=== PATIENT | male | born 1950 | race Caucasian/White ===

== ENCOUNTER 2018-06-10 13:27 | Outpatient (CLI) | payer OTHER, MEDICARE ==
[~2018-06-10] VITALS: Ht 180.3 cm; Wt 93.4 kg
[~2018-06-10 13:27] MED LIST: ATI1T PO; COL100C PO; KEP500T PO; LEVE750T6 PO; LEVO50TA67 PO; LORA1TAB PO; NORCO10T PO; RANI-327 PO; SIMV80TA2 PO; TEMA30CA5 PO; [UNRECOGNIZED DRUG - CODE] PO
[2018-06-10] MEDS ORDERED: FLO0.4C PO (14:51)
[2018-06-10] MEDS ORDERED: ZONI100C6 PO (14:51)
[2018-06-10] MEDS ORDERED: NAPR220C15 PO (14:53)
[2018-06-10] MEDS ORDERED: ACET-75 PO (14:53)
[2018-06-10 15:09] LABS: BASOPHILS % (AUTO) 0.3 % (0-1); EOSINOPHILS # (AUTO) 0.1 X10'3 (0-0.9); EOSINOPHILS % (AUTO) 1.3 % (0-6); LYMPHOCYTES # (AUTO) 1.4 X10'3 (1.1-4.8); LYMPHOCYTES % (AUTO) 24.2 % (21-51); MEAN CORPUSCULAR HEMOGLOBIN 33.4 PG (27.0-31.0); MEAN CORPUSCULAR HGB CONC 35.1 % (33.0-36.5); MEAN CORPUSCULAR VOLUME 95.1 FL (78-98); MEAN PLATELET VOLUME 7.3 FL (7.4-10.4); MONOCYTES # (AUTO) 0.4 X10'3 (0-0.9); MONOCYTES % (AUTO) 7.2 % (2-12); NEUTROPHILS # (AUTO) 3.9 X10'3 (1.8-7.7); PRE OP HEMATOCRIT 44.6 % (42.0-52.0); PRE OP HEMOGLOBIN 15.7 g/dL (14.0-17.9); PRE OP PLATELET COUNT 236 X10'3 (140-440); RED BLOOD COUNT 4.69 X10'6 (4.70-6.10); RED CELL DISTRIBUTION WIDTH 12.6 % (11.5-14.5)
[2018-06-10 15:15] LABS: CLARITY,URINE CLOUDY (Clear); COLOR,URINE YELLOW (Yellow); GLUCOSE, URINE NEGATIVE (Neg); KETONES,URINE TRACE mg/dl (Neg); LEUKOCYTE ESTERASE ,URINE NEGATIVE (Neg); NITRITES, URINE NEGATIVE (Neg); OCCULT BLOOD,URINE LARGE (Neg); PH,URINE 5.5 (4.8-8.0); PROTEIN,URINE TRACE mg/dl (Neg); UROBILINOGEN,URINE 0.2 E.U/dL (0.2-1.0)
[2018-06-10 15:29] LABS: UA COLLECTION TYPE CLN CATCH MIDSTREAM
[2018-06-10 15:31] LABS: RBC,URINE TNTC /HPF (0-2)
[2018-06-10 15:35] LABS: ALBUMIN 4.4 G/DL (3.4-5.0); ALBUMIN/GLOBULIN RATIO 1.3 (1.1-1.5); ALKALINE PHOSPHATASE 72 IU/L (46-116); BLOOD UREA NITROGEN 18 MG/DL (7-18); BUN/CREATININE RATIO 14.9 (5.4-32.0); CALCIUM 10.6 MG/DL (8.5-10.1); CHLORIDE 104 MMOL/L (99-107); CREATININE 1.21 MG/DL (0.60-1.10); PRE OP ALT 29 U/L (30-65); PRE OP ANION GAP 12 (8-16); PRE OP AST 16 U/L (10-37); PRE OP BILIRUB, TOTAL 0.4 MG/DL (0.0-1.0); PRE OP GLUCOSE 85 MG/DL (70-104); PRE OP POTASSIUM 4.1 MMOL/L (3.4-5.1); PRE OP SODIUM 137 MMOL/L (135-145); TOTAL CARBON DIOXIDE 21.5 MMOL/L (24-32); TOTAL PROTEIN 7.8 G/DL (6.4-8.2); eGFR 60 ML/MIN
[2018-06-10 15:42] LABS: AMORPHOUS URATES 1+; BACTERIA,URINE FEW /HPF (Neg); CAL OXALATE CRYSTALS 1+ /HPF (NEGATIVE); MUCUS STRANDS FEW /LPF (Neg); SQUAMOUS EPITHELIAL CELL,UR FEW /LPF (FEW)
[2018-06-18] MEDS ORDERED: ringers solution, lacted 1,000 ML IV SCH (05:00)
[2018-06-18] MEDS ORDERED: famotidine 20mg tablet PO ONE (05:30)
== END 2018-06-10 23:59 | disposition home or self-care (01) ==
LOC: PRE-OP 13:27 → EDSTATUS 06-18 15:15
PROVIDERS: ATTEND Orthopaedic Surgery
DX: Z01.812 Encounter for preprocedural laboratory examination (principal); Z01.810 Encounter for preprocedural cardiovascular examination; M75.21 Bicipital tendinitis, right shoulder; M75.121 Complete rotator cuff tear or rupture of right shoulder, not specified as traumatic; M19.011 Primary osteoarthritis, right shoulder; M25.511 Pain in right shoulder; F10.10 Alcohol abuse, uncomplicated
CPT/HCPCS: 36415; 80053; 81001; 84443; 85025; 87070; 87088; 93005

== ENCOUNTER 2018-07-16 09:11 | Inpatient (IN) | payer OTHER, MEDICARE ==
[2018-07-16] VITALS (20 sets, daily range): BP systolic 88–131; BP diastolic 47–92
[~2018-07-16] VITALS: Ht 180.3 cm; Wt 95.3 kg
[~2018-07-16 09:11] MED LIST changes: +ACET-75 PO; -ATI1T PO; -COL100C PO; +Cefazolin 2GM/50ML dext iso,osmotic IVPB IV ONE; +FLO0.4C PO; -KEP500T PO; -LEVE750T6 PO; -LEVO50TA67 PO; -LORA1TAB PO; +NAPR220C15 PO; -NORCO10T PO; -RANI-327 PO; +ROPIVAcaine 0.5% (5mg/ml) 30ml vial ONE; -SIMV80TA2 PO; -TEMA30CA5 PO; +VANCOMYCIN INJ 1000 MG in NORMAL SALINE 250ml IV.SOLN IV ONE; +ZONI100C6 PO; -[UNRECOGNIZED DRUG - CODE] PO; +famotidine 20mg tablet PO ONE; +ringers solution, lacted 1,000 ML IV SCH; +tranexamic acid inj. 907 MG in normal saline 100ml IV soln 90.93 ML IV ONE
[2018-07-16] MEDS ORDERED: LIDOcaine 2% (20mg/ml) 5ml vial ONE (09:39)
[2018-07-16] MEDS ORDERED: propofol inj 20 ML IV ONE (09:39)
[2018-07-16] MEDS ORDERED: LIDOcaine 1% (10mg/ml) 2ml vial ONE (09:39)
[2018-07-16] MEDS ORDERED: ketorolac trometh. 30mg/ml inj. ONE (10:01)
[2018-07-16] MEDS ORDERED: vancomycin 1,000mg inj ONE (10:02)
[2018-07-16] MEDS ORDERED: ROPIVAcaine 0.5% (5mg/ml) 30ml vial ONE (10:02)
[2018-07-16] MEDS ORDERED: sevoflurane 250ml liquid IH ONE (10:07)
[2018-07-16 10:11] LABS: BASOPHILS % (AUTO) 0.1 % (0-1); EOSINOPHILS # (AUTO) 0.1 X10'3 (0-0.9); EOSINOPHILS % (AUTO) 1.8 % (0-6); LYMPHOCYTES # (AUTO) 1.2 X10'3 (1.1-4.8); LYMPHOCYTES % (AUTO) 25.2 % (21-51); MEAN CORPUSCULAR HEMOGLOBIN 33.3 PG (27.0-31.0); MEAN CORPUSCULAR HGB CONC 34.5 % (33.0-36.5); MEAN CORPUSCULAR VOLUME 96.5 FL (78-98); MEAN PLATELET VOLUME 6.8 FL (7.4-10.4); MONOCYTES # (AUTO) 0.5 X10'3 (0-0.9); NEUTROPHILS # (AUTO) 2.9 X10'3 (1.8-7.7); NEUTROPHILS % (AUTO) 61.9 % (42-75); PRE OP HEMATOCRIT 41.5 % (42.0-52.0); PRE OP HEMOGLOBIN 14.3 g/dL (14.0-17.9); PRE OP PLATELET COUNT 231 X10'3 (140-440); RED CELL DISTRIBUTION WIDTH 13.3 % (11.5-14.5)
[2018-07-16] MEDS ORDERED: LEVE250T4 PO (10:15)
[2018-07-16 10:19] LABS: ALBUMIN/GLOBULIN RATIO 1.2 (1.1-1.5); ALKALINE PHOSPHATASE 92 IU/L (46-116); BLOOD UREA NITROGEN 15 MG/DL (7-18); BUN/CREATININE RATIO 13.9 (5.4-32.0); CALCIUM 9.5 MG/DL (8.5-10.1); CHLORIDE 104 MMOL/L (99-107); CREATININE 1.08 MG/DL (0.60-1.10); PRE OP ALT 33 U/L (30-65); PRE OP ANION GAP 6 (8-16); PRE OP AST 23 U/L (10-37); PRE OP BILIRUB, TOTAL 0.5 MG/DL (0.0-1.0); PRE OP GLUCOSE 88 MG/DL (70-104); PRE OP POTASSIUM 4.3 MMOL/L (3.4-5.1); PRE OP SODIUM 136 MMOL/L (135-145); TOTAL CARBON DIOXIDE 25.7 MMOL/L (24-32); TOTAL PROTEIN 7.4 G/DL (6.4-8.2); eGFR 68 ML/MIN
[2018-07-16] MEDS ORDERED: MIDAZolam 5mg/5ml vial ONE (10:20)
[2018-07-16] MEDS ORDERED: fentaNYL/PF 50MCG/1 ML 2ML syringe ONE ×2 (10:20→11:49)
[2018-07-16] MEDS ORDERED: ringers solution, lacted 1,000 ML IV SCH (10:56)
[2018-07-16] MEDS ORDERED: fentaNYL/PF 50MCG/1 ML 2ML syringe IV PRN ×2 (11:00)
[2018-07-16] MEDS ORDERED: hydrALAZINE 20mg/ml inj. IV PRN (11:00)
[2018-07-16] MEDS ORDERED: enalaprilat dihydrate 2.5mg/2ml vial IV PRN (11:00)
[2018-07-16] MEDS ORDERED: ondansetron/PF 4mg/2ml inj IV PRN ×2 (11:00→12:25)
[2018-07-16] MEDS ORDERED: morphine 4 MG/ML inj SYRINge IV PRN ×2 (11:00)
[2018-07-16] MEDS ORDERED: morphine 10mg/ml inj. ONE (12:01)
[2018-07-16] MEDS ORDERED: labetalol 5mg/ml 20ml inj. IV ONE (12:10)
[2018-07-16] MEDS ORDERED: ondansetron/PF 4mg/2ml inj ONE (12:11)
[2018-07-16] MEDS ORDERED: dexamethasone sod phosphate 4mg/ml inj. ONE (12:11)
[2018-07-16] MEDS ORDERED: HYDROmorphone 1 mg/ml syringe IV PRN ×2 (12:25)
[2018-07-16] MEDS ORDERED: magnesium hydroxide 30ml (MOM) UD suspension PO PRN (12:25)
[2018-07-16] MEDS ORDERED: diphenhydrAMINE 25mg capsule PO PRN ×2 (12:25)
[2018-07-16] MEDS ORDERED: oxyCODONE IR 5mg (immed. release) tablet PO PRN (12:25)
[2018-07-16] MEDS ORDERED: acetaminophen 325mg tablet PO PRN (12:25)
[2018-07-16] MEDS ORDERED: bisacodyl 10mg suppository rectal RC PRN (12:25)
[2018-07-16] MEDS: gabapentin 300mg capsule PO SCH ×2 (13:00→20:45)
[2018-07-16] MEDS: acetaminophen 325mg tablet PO SCH ×4 (14:00→20:45)
[2018-07-16] MEDS ORDERED: non-formulary drug (Acetaminophen 1 TABLET) PO SCH (14:00)
[2018-07-16] MEDS ORDERED: tranexamic acid inj. 950 MG in normal saline 100ml IV soln 100 ML IV ONE (15:25)
[2018-07-16] MEDS: ketorolac tromethamine 15mg/ml inj. IV SCH ×2 (16:29→20:45)
[2018-07-16] MEDS: ceFAZolin 1GM/D5W- ADD-VANTAGE 50 ML IV SCH ×2 (16:35→23:49)
[2018-07-16] MEDS: potassium cl 20mEq in 1/2 NS 1,000 ML IV SCH ×2 (16:35→20:25)
[2018-07-16] MEDS ORDERED: ipratropium/albuterol 3ml nebule IH PRN (17:55)
[2018-07-16] MEDS ORDERED: vancomycin/NS 1 GM ADD-VANTAGE 250 ML IV SCH (20:00)
[2018-07-16] MEDS ORDERED: NAPROXEN SODIUM 220 MG PO SCH (20:00)
[2018-07-16] MEDS: oxyCODONE IR 5mg (immed. release) tablet PO PRN (20:46)
[2018-07-16] MEDS ORDERED: sennosides 8.6mg tablet PO SCH (21:00)
[2018-07-17] MEDS: oxyCODONE IR 5mg (immed. release) tablet PO PRN ×3 (01:35→09:38)
[2018-07-17] MEDS: acetaminophen 325mg tablet PO SCH ×5 (01:36→13:05)
[2018-07-17] MEDS: ketorolac tromethamine 15mg/ml inj. IV SCH ×2 (01:37→07:37)
[2018-07-17 02:00] VITALS: BP 108/62
[2018-07-17] MEDS: potassium cl 20mEq in 1/2 NS 1,000 ML IV SCH ×2 (03:30→11:13)
[2018-07-17 06:00] VITALS: BP 116/65
[2018-07-17 06:49] LABS: BASOPHILS % (AUTO) 0.3 % (0-1); EOSINOPHILS % (AUTO) 0 % (0-6); HEMATOCRIT 33.3 % (42.0-52.0); HEMOGLOBIN 11.3 g/dl (14.0-17.9); LYMPHOCYTES # (AUTO) 0.8 X10'3 (1.1-4.8); MEAN CORPUSCULAR HEMOGLOBIN 33.1 PG (27.0-31.0); MEAN CORPUSCULAR HGB CONC 33.9 % (33.0-36.5); MEAN CORPUSCULAR VOLUME 97.7 FL (78-98); MEAN PLATELET VOLUME 7.1 FL (7.4-10.4); MONOCYTES # (AUTO) 0.9 X10'3 (0-0.9); MONOCYTES % (AUTO) 9.5 % (2-12); NEUTROPHILS # (AUTO) 8.1 X10'3 (1.8-7.7); NEUTROPHILS % (AUTO) 82.2 % (42-75); PLATELET COUNT 205 X10'3 (140-440); RED BLOOD COUNT 3.41 X10'6 (4.70-6.10); RED CELL DISTRIBUTION WIDTH 13.3 % (11.5-14.5); WHITE BLOOD COUNT 9.9 X10'3 (4.5-11.0)
[2018-07-17 06:58] LABS: ANION GAP 7 (8-16); CHLORIDE 102 MMOL/L (99-107); POTASSIUM 5.1 MMOL/L (3.5-5.1); SODIUM 132 MMOL/L (135-145); TOTAL CARBON DIOXIDE 23.4 MMOL/L (24-32)
[2018-07-17] MEDS: simethicone 80mg chew tab PO SCH ×2 (07:38→12:57)
[2018-07-17] MEDS: gabapentin 300mg capsule PO SCH ×2 (07:38→12:57)
[2018-07-17] MEDS ORDERED: ASPI-1 PO (08:25)
[2018-07-17] MEDS ORDERED: OXYCODONE HCL 10 MG (08:28)
[2018-07-17] MEDS ORDERED: aspirin 325mg tablet PO SCH (08:30)
[2018-07-17 10:00] VITALS: BP 106/61
[2018-07-17] MEDS ORDERED: celeCOXIB 100mg capsule PO SCH (20:00)
[2018-07-18] MEDS ORDERED: acetaminophen 325mg tablet PO PRN (12:25)
== END 2018-07-17 14:00 | disposition home or self-care (01) | DRG 483 ==
LOC: PAS IN 09:11 → EDSTATUS 11:00 → ORTHO 4S 14:15
PROVIDERS: ADMIT Orthopaedic Surgery; ATTEND Orthopaedic Surgery
PROC: 0LS30ZZ Reposition Right Upper Arm Tendon, Open Approach (ICD-10-PCS; 2018-07-16)
PROC: 3E0T3BZ Introduction of Anesthetic Agent into Peripheral Nerves and Plexi, Percutaneous Approach (ICD-10-PCS; 2018-07-16)
PROC: 0RRJ00Z Replacement of Right Shoulder Joint with Reverse Ball and Socket Synthetic Substitute, Open Approach (ICD-10-PCS; principal; 2018-07-16 10:12)
DX: M19.011 Primary osteoarthritis, right shoulder (principal); D62 Acute posthemorrhagic anemia; M75.121 Complete rotator cuff tear or rupture of right shoulder, not specified as traumatic; M65.811 Other synovitis and tenosynovitis, right shoulder; N40.0 Benign prostatic hyperplasia without lower urinary tract symptoms; F32.89 Other specified depressive episodes; F41.9 Anxiety disorder, unspecified; G89.4 Chronic pain syndrome; G40.909 Epilepsy, unspecified, not intractable, without status epilepticus; K21.9 Gastro-esophageal reflux disease without esophagitis; E78.5 Hyperlipidemia, unspecified; E03.9 Hypothyroidism, unspecified; E66.8 Other obesity; Z96.612 Presence of left artificial shoulder joint; Z88.8 Allergy status to other drugs, medicaments and biological substances; Z79.899 Other long term (current) drug therapy; Z79.82 Long term (current) use of aspirin; Z68.29 Body mass index [BMI] 29.0-29.9, adult
CPT/HCPCS: 36415; 80051; 80053; 85025; 87070; 94640; 94760; 97110; 97162; 97530; A4565; A6255; A7000; J0690; J1100; J1885; J2001; J2250; J2270; J2405; J2704; J2795; J3010; J3370; J3490; J7030; J7040; J7120; Q0163

== ENCOUNTER 2019-04-07 11:08 | Emergency (ER) | payer MEDICARE, OTHER ==
[~2019-04-07] VITALS: Ht 180.3 cm; Wt 90.9 kg
[~2019-04-07 11:08] MED LIST changes: +ASPI-1 PO; -Cefazolin 2GM/50ML dext iso,osmotic IVPB IV ONE; -FLO0.4C PO; +OXYCODONE HCL 10 MG; -ROPIVAcaine 0.5% (5mg/ml) 30ml vial ONE; -VANCOMYCIN INJ 1000 MG in NORMAL SALINE 250ml IV.SOLN IV ONE; -ZONI100C6 PO; -famotidine 20mg tablet PO ONE; -ringers solution, lacted 1,000 ML IV SCH; -tranexamic acid inj. 907 MG in normal saline 100ml IV soln 90.93 ML IV ONE
[2019-04-07] MEDS ORDERED: normal saline 1000ML IV soln IVB ONE (12:25)
[2019-04-07] MEDS ORDERED: morphine 4 MG/ML inj SYRINge IV PRN (12:25)
[2019-04-07] MEDS ORDERED: ondansetron/PF 4mg/2ml inj IV ONE (12:25)
[2019-04-07] MEDS ORDERED: ketorolac trometh. 30mg/ml inj. IM ONE (12:25)
[2019-04-07] MEDS ORDERED: ketorolac trometh. 30mg/ml inj. IV ONE (12:40)
[2019-04-07 12:43] LABS: BASOPHILS % (AUTO) 0.2 % (0-1); EOSINOPHILS % (AUTO) 0.9 % (0-6); HEMOGLOBIN 11.8 g/dl (14.0-17.9); LYMPHOCYTES # (AUTO) 1.1 X10'3 (1.1-4.8); LYMPHOCYTES % (AUTO) 22.7 % (21-51); MEAN CORPUSCULAR HEMOGLOBIN 23.8 PG (27.0-31.0); MEAN CORPUSCULAR HGB CONC 31.8 g/dL (33.0-36.5); MEAN CORPUSCULAR VOLUME 74.7 FL (78-98); MEAN PLATELET VOLUME 6.8 FL (7.4-10.4); MONOCYTES # (AUTO) 0.4 X10'3 (0-0.9); MONOCYTES % (AUTO) 9.4 % (2-12); NEUTROPHILS # (AUTO) 3.1 X10'3 (1.8-7.7); NEUTROPHILS % (AUTO) 66.8 % (42-75); PLATELET COUNT 235 X10'3 (140-440); RED BLOOD COUNT 4.95 X10'6 (4.70-6.10); RED CELL DISTRIBUTION WIDTH 16.9 % (11.5-14.5); WHITE BLOOD COUNT 4.7 X10'3 (4.5-11.0)
[2019-04-07] MEDS ORDERED: ketorolac tromethamine 15mg/ml inj. IV ONE (12:50)
[2019-04-07 12:57] LABS: ALANINE AMINOTRANSFERASE 29 U/L (12-78); ALBUMIN 4.2 G/DL (3.4-5.0); ALBUMIN/GLOBULIN RATIO 1.2 (1.1-1.5); ALKALINE PHOSPHATASE 96 IU/L (46-116); ANION GAP 9 (8-16); ASPARTATE AMINO TRANSFERASE 18 U/L (10-37); BILIRUBIN,TOTAL 0.3 MG/DL (0.1-1.0); BLOOD UREA NITROGEN 15 MG/DL (7-18); BUN/CREATININE RATIO 10.9 (5.4-32.0); CALCIUM 10.7 MG/DL (8.5-10.1); CHLORIDE 105 MMOL/L (99-107); CREATININE 1.38 MG/DL (0.60-1.10); GLUCOSE 106 MG/DL (70-104); LIPASE 166 U/L (73-393); POTASSIUM 4.4 MMOL/L (3.5-5.1); SODIUM 139 MMOL/L (135-145); TOTAL CARBON DIOXIDE 25.4 MMOL/L (24-32); TOTAL PROTEIN 7.8 G/DL (6.4-8.2); eGFR 51 ML/MIN
[2019-04-07 14:42] LABS: CLARITY,URINE TURBID (Clear); COLOR,URINE YELLOW (Yellow); GLUCOSE, URINE NEGATIVE (Neg); KETONES,URINE NEGATIVE (Neg); LEUKOCYTE ESTERASE ,URINE NEGATIVE (Neg); NITRITES, URINE NEGATIVE (Neg); OCCULT BLOOD,URINE LARGE (Neg); PH,URINE 6.5 (4.8-8.0); PROTEIN,URINE 30 mg/dl (Neg); UROBILINOGEN,URINE 0.2 E.U/dL (0.2-1.0)
[2019-04-07 14:48] LABS: UA COLLECTION TYPE CLN CATCH MIDSTREAM
[2019-04-07 14:50] LABS: MUCUS STRANDS FEW /LPF (Neg); SQUAMOUS EPITHELIAL CELL,UR NONE SEEN /LPF (FEW)
[2019-04-07 14:51] LABS: RBC,URINE TNTC /HPF (0-2); WBC,URINE 0-4 /HPF (0-4)
[2019-04-07 14:52] LABS: BACTERIA,URINE FEW /HPF (Neg)
[2019-04-07] MEDS ORDERED: FLO0.4C PO (14:57)
[2019-04-07] MEDS ORDERED: HYDR-4384 PO (14:57)
[2019-04-07 15:13] VITALS: BP 148/92
== END 2019-04-07 15:15 | disposition home or self-care (01) ==
LOC: ER 11:09
DX: N13.2 Hydronephrosis with renal and ureteral calculous obstruction (principal); G89.29 Other chronic pain; F10.10 Alcohol abuse, uncomplicated; Z98.890 Other specified postprocedural states; Z60.2 Problems related to living alone; Z88.8 Allergy status to other drugs, medicaments and biological substances; Z79.82 Long term (current) use of aspirin; Z79.899 Other long term (current) drug therapy
CPT/HCPCS: 36415; 74176; 80053; 81001; 83690; 85025; 96374; 96375; 99284; J1885; J2270; J2405; J7030

== ENCOUNTER 2022-10-14 21:29 | Inpatient (IN) | payer OTHER, MEDICARE ==
[~2022-10-14] VITALS: Ht 180.3 cm; Wt 88.0 kg
[~2022-10-14 21:29] MED LIST changes: -ACET-75 PO; -ASPI-1 PO; +GABA300C PO; +LEVE10006 PO; -NAPR220C15 PO; -OXYCODONE HCL 10 MG
[2022-10-14] MEDS ORDERED: normal saline 1000ML IV soln IVB ONE (22:40)
[2022-10-14 23:29] LABS: BASOPHILS % (AUTO) 0.6 % (0-1); EOSINOPHILS # (AUTO) 0.1 X10'3 (0-0.9); EOSINOPHILS % (AUTO) 2.3 % (0-6); HEMATOCRIT 29.3 % (42.0-52.0); HEMOGLOBIN 9.4 g/dl (14.0-17.9); LYMPHOCYTES % (AUTO) 25.2 % (21-51); MEAN CORPUSCULAR HEMOGLOBIN 25.9 PG (27.0-31.0); MEAN CORPUSCULAR HGB CONC 32.2 g/dL (33.0-36.5); MEAN CORPUSCULAR VOLUME 80.5 FL (78-98); MEAN PLATELET VOLUME 6.8 FL (7.4-10.4); MONOCYTES # (AUTO) 0.7 X10'3 (0-0.9); MONOCYTES % (AUTO) 16.5 % (2-12); NEUTROPHILS # (AUTO) 2.3 X10'3 (1.8-7.7); NEUTROPHILS % (AUTO) 55.4 % (42-75); PLATELET COUNT 412 X10'3 (140-440); RED BLOOD COUNT 3.64 X10'6 (4.70-6.10); RED CELL DISTRIBUTION WIDTH 17.3 % (11.5-14.5); WHITE BLOOD COUNT 4.1 X10'3 (4.5-11.0)
[2022-10-14 23:32] LABS: ALANINE AMINOTRANSFERASE 33 U/L (12-78); ALBUMIN 2.5 G/DL (3.4-5.0); ALBUMIN/GLOBULIN RATIO 0.7 (1.1-1.5); ALKALINE PHOSPHATASE 116 IU/L (46-116); ANION GAP 7 (8-16); ASPARTATE AMINO TRANSFERASE 22 U/L (10-37); BILIRUBIN,TOTAL 0.2 MG/DL (0.1-1.0); BLOOD UREA NITROGEN 10 MG/DL (7-18); CALCIUM 9.6 MG/DL (8.5-10.1); CHLORIDE 103 MMOL/L (99-107); CREATININE 1.11 MG/DL (0.60-1.10); ETHANOL < 0.010 GM/DL (0.0-0.010); GLUCOSE 95 MG/DL (70-104); LIPASE 70 U/L (73-393); POTASSIUM 4.3 MMOL/L (3.5-5.1); SODIUM 138 MMOL/L (135-145); TOTAL CARBON DIOXIDE 27.7 MMOL/L (24-32); TOTAL PROTEIN 6.3 G/DL (6.4-8.2); eGFR 65 ML/MIN
[2022-10-15 00:39] LABS: CLARITY,URINE CLEAR (Clear); COLOR,URINE YELLOW (Yellow); GLUCOSE, URINE NEGATIVE (Neg); KETONES,URINE NEGATIVE (Neg); LEUKOCYTE ESTERASE ,URINE NEGATIVE (Neg); NITRITES, URINE NEGATIVE (Neg); OCCULT BLOOD,URINE NEGATIVE (Neg); PH,URINE 6.5 (4.8-8.0); PROTEIN,URINE NEGATIVE (Neg); UROBILINOGEN,URINE 0.2 E.U/dL (0.2-1.0)
[2022-10-15 00:40] LABS: UA COLLECTION TYPE URINAL
[2022-10-15] MEDS ORDERED: oxyCODONE/APAP 5-325mg tablet PO ONE (01:00)
[2022-10-15] MEDS ORDERED: ondansetron/PF 4mg/2ml inj IV PRN (01:20)
[2022-10-15] MEDS ORDERED: magnesium Cl slow-release 64mg tablet PO PRN (01:20)
[2022-10-15] MEDS ORDERED: acetaminophen 325mg tablet PO PRN ×2 (01:20)
[2022-10-15] MEDS ORDERED: HYDROcodone/acetaminophen 5mg/325mg tablet PO PRN (01:20)
[2022-10-15] MEDS ORDERED: morphine 2 MG/ML inj. syringe IV PRN ×2 (01:20)
[2022-10-15] MEDS ORDERED: potassium Cl 40MEQ/1/2NS 520ml 520 ML IV PRN (01:20)
[2022-10-15] MEDS ORDERED: potassium Cl 20 mEq SR tablet PO PRN ×2 (01:20)
[2022-10-15] MEDS ORDERED: magnesium 4gm in 100ml NS 100 ML IV PRN (01:20)
[2022-10-15] MEDS ORDERED: LORazepam 2 mg/ml vial IV ONE (01:55)
[2022-10-15] MEDS ORDERED: diphenhydrAMINE 50 mg/ml inj IV ONE (01:55)
[2022-10-15] MEDS ORDERED: haloperidol lactate 5mg/ml inj IVH ONE (01:55)
[2022-10-15] MEDS ORDERED: ciprofloxacin lact 400MG/200ML 200 ML IV SCH (02:00)
[2022-10-15] MEDS ORDERED: metroNIDAZOLE-Flagyl 500mg/NS 100 ML IV SCH (02:00)
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
--- NOTE | 2022-10-15 04:06 | NUR ---
[facility] contacted and gave the name Jaclyn Holbrook [phone] as healthcare POA.
--- NOTE | 2022-10-15 06:50 | NUR ---
received report from ed nurse
[2022-10-15] MEDS: K and/or MAG REPLACEMENT MC SCH ×2 (08:00→18:33)
[2022-10-15] MEDS: heparin, porcine 5000 units/ml vial SQ SCH ×2 (08:00→20:31)
[2022-10-15] MEDS: normal saline 1000ml 1,000 ML IV SCH ×3 (08:10→20:30)
[2022-10-15 09:00] VITALS: BP 120/54
[2022-10-15] MEDS ORDERED: piperacillin/tazo 4.5gm/100ml 100 ML IV SCH (09:38)
[2022-10-15 10:00] VITALS: BP 113/50
[2022-10-15] MEDS: HYDROcodone/acetaminophen 10/325mg tab PO PRN ×3 (11:31→20:29)
[2022-10-15] MEDS ORDERED: iohexol 300mg/ml 100ml inj. ONE (11:36)
[2022-10-15] MEDS: piperacillin/tazo 4.5gm/100ml 100 ML IV SCH (16:48)
[2022-10-15 18:00] VITALS: BP 119/71
--- NOTE | 2022-10-15 18:28 | NUR ---
gave report to tray minor
--- NOTE | 2022-10-15 18:35 | NUR ---
Received Report from Mable SQUIRES.
[2022-10-15] MEDS: diatr meglu/diatrizoate 30ml oral sol.-(3 dose) bottle PO SCH (20:30)
[2022-10-15 22:00] VITALS: BP 114/64
[2022-10-16] MEDS: HYDROcodone/acetaminophen 10/325mg tab PO PRN ×3 (00:13→21:42)
[2022-10-16] MEDS: temazepam 15mg capsule PO PRN ×3 (01:30→21:42)
[2022-10-16] MEDS: piperacillin/tazo 4.5gm/100ml 100 ML IV SCH ×3 (01:33→19:23)
[2022-10-16 06:00] VITALS: BP 116/62
[2022-10-16 06:01] LABS: BASOPHILS % (AUTO) 0.6 % (0-1); EOSINOPHILS # (AUTO) 0.2 X10'3 (0-0.9); EOSINOPHILS % (AUTO) 4.8 % (0-6); LYMPHOCYTES # (AUTO) 0.7 X10'3 (1.1-4.8); LYMPHOCYTES % (AUTO) 22.1 % (21-51); MEAN CORPUSCULAR HEMOGLOBIN 25.6 PG (27.0-31.0); MEAN CORPUSCULAR HGB CONC 32.2 g/dL (33.0-36.5); MEAN CORPUSCULAR VOLUME 79.5 FL (78-98); MEAN PLATELET VOLUME 6.6 FL (7.4-10.4); MONOCYTES # (AUTO) 0.6 X10'3 (0-0.9); MONOCYTES % (AUTO) 17.5 % (2-12); NEUTROPHILS # (AUTO) 1.8 X10'3 (1.8-7.7); PLATELET COUNT 387 X10'3 (140-440); RED CELL DISTRIBUTION WIDTH 17.1 % (11.5-14.5); WHITE BLOOD COUNT 3.3 X10'3 (4.5-11.0)
--- NOTE | 2022-10-16 06:25 | NUR ---
Report to Sharmila SQUIRES.
[2022-10-16 06:30] LABS: ALANINE AMINOTRANSFERASE 31 U/L (12-78); ALBUMIN 2.5 G/DL (3.4-5.0); ALBUMIN/GLOBULIN RATIO 0.6 (1.1-1.5); ALKALINE PHOSPHATASE 122 IU/L (46-116); ANION GAP 9 (8-16); ASPARTATE AMINO TRANSFERASE 24 U/L (10-37); BILIRUBIN,TOTAL 0.2 MG/DL (0.1-1.0); BLOOD UREA NITROGEN 7 MG/DL (7-18); BUN/CREATININE RATIO 5.6 (5.4-32.0); CALCIUM 9.8 MG/DL (8.5-10.1); CHLORIDE 104 MMOL/L (99-107); CREATININE 1.25 MG/DL (0.60-1.10); GLUCOSE 93 MG/DL (70-104); POTASSIUM 4.1 MMOL/L (3.5-5.1); SODIUM 140 MMOL/L (135-145); TOTAL CARBON DIOXIDE 26.9 MMOL/L (24-32); TOTAL PROTEIN 6.5 G/DL (6.4-8.2); eGFR 57 ML/MIN
[2022-10-16] MEDS: diatr meglu/diatrizoate 30ml oral sol.-(3 dose) bottle PO SCH ×2 (07:26→21:00)
[2022-10-16] MEDS: K and/or MAG REPLACEMENT MC SCH ×2 (08:00→20:00)
[2022-10-16 10:30] VITALS: BP 123/74
[2022-10-16] MEDS ORDERED: iohexol 300mg/ml 100ml inj. ONE (10:55)
[2022-10-16] MEDS ORDERED: DOCU100C40 PO (12:30)
[2022-10-16] MEDS ORDERED: LEVE10002 PO (12:30)
[2022-10-16] MEDS ORDERED: MULT-1085 PO (12:30)
[2022-10-16] MEDS ORDERED: FOLI1TAB27 PO (12:30)
[2022-10-16] MEDS ORDERED: THIA50TA10 PO (12:30)
[2022-10-16] MEDS ORDERED: BISA10SU11 RC (12:42)
[2022-10-16] MEDS ORDERED: MAGN400O6 PO (12:42)
[2022-10-16] MEDS ORDERED: GABA300C PO (12:42)
[2022-10-16] MEDS ORDERED: ACET325T55 PO (12:42)
[2022-10-16] MEDS ORDERED: NYSPWD TP (12:42)
[2022-10-16] MEDS ORDERED: TEMA15CA5 PO (12:42)
[2022-10-16] MEDS ORDERED: IPRA3AMP31 IH (12:42)
[2022-10-16] MEDS ORDERED: AMIO200T27 PO (12:42)
[2022-10-16] MEDS ORDERED: NA P133E4 RC (12:42)
[2022-10-16] MEDS ORDERED: PANT40TA54 PO (12:42)
[2022-10-16] MEDS ORDERED: [UNRECOGNIZED DRUG - CODE] SQ (12:42)
[2022-10-16] MEDS ORDERED: [UNRECOGNIZED DRUG - CODE] PO (12:42)
[2022-10-16] MEDS ORDERED: OXYC-145 PO (12:42)
[2022-10-16] MEDS ORDERED: OXYC-150 PO (12:42)
[2022-10-16 18:00] VITALS: BP 121/67
--- NOTE | 2022-10-16 18:00 | NUR ---
Assumed care from Sharmila SQUIRES.
--- NOTE | 2022-10-16 18:27 | NUR ---
Report to Nalini feliz
[2022-10-16] MEDS: heparin, porcine 5000 units/ml vial SQ SCH (19:35)
[2022-10-16] MEDS: normal saline 1000ml 1,000 ML IV SCH (20:14)
[2022-10-16 23:14] VITALS: BP 120/64
[2022-10-17] MEDS: temazepam 15mg capsule PO PRN (00:58)
[2022-10-17] MEDS: HYDROcodone/acetaminophen 10/325mg tab PO PRN ×2 (02:01→09:56)
[2022-10-17] MEDS: piperacillin/tazo 4.5gm/100ml 100 ML IV SCH ×2 (02:01→09:56)
[2022-10-17 06:00] VITALS: BP 97/42
--- NOTE | 2022-10-17 06:20 | NUR ---
Report to Sharmila SQUIRES.
[2022-10-17 06:48] LABS: BASOPHILS % (AUTO) 0.4 % (0-1); EOSINOPHILS # (AUTO) 0.2 X10'3 (0-0.9); HEMATOCRIT 29.9 % (42.0-52.0); HEMOGLOBIN 9.4 g/dl (14.0-17.9); LYMPHOCYTES % (AUTO) 30.2 % (21-51); MEAN CORPUSCULAR HEMOGLOBIN 25.5 PG (27.0-31.0); MEAN CORPUSCULAR HGB CONC 31.3 g/dL (33.0-36.5); MEAN CORPUSCULAR VOLUME 81.4 FL (78-98); MEAN PLATELET VOLUME 6.7 FL (7.4-10.4); MONOCYTES # (AUTO) 0.5 X10'3 (0-0.9); MONOCYTES % (AUTO) 15.5 % (2-12); NEUTROPHILS # (AUTO) 1.7 X10'3 (1.8-7.7); NEUTROPHILS % (AUTO) 48.9 % (42-75); PLATELET COUNT 342 X10'3 (140-440); RED BLOOD COUNT 3.68 X10'6 (4.70-6.10); RED CELL DISTRIBUTION WIDTH 17.1 % (11.5-14.5); WHITE BLOOD COUNT 3.4 X10'3 (4.5-11.0)
[2022-10-17 07:20] VITALS: BP 89/46
[2022-10-17 07:29] LABS: ALANINE AMINOTRANSFERASE 23 U/L (12-78); ALBUMIN 2.3 G/DL (3.4-5.0); ALBUMIN/GLOBULIN RATIO 0.6 (1.1-1.5); ALKALINE PHOSPHATASE 101 IU/L (46-116); ASPARTATE AMINO TRANSFERASE 22 U/L (10-37); BILIRUBIN,TOTAL 0.2 MG/DL (0.1-1.0); BLOOD UREA NITROGEN 7 MG/DL (7-18); BUN/CREATININE RATIO 5.1 (5.4-32.0); CALCIUM 9.4 MG/DL (8.5-10.1); CREATININE 1.37 MG/DL (0.60-1.10); GLUCOSE 95 MG/DL (70-104); TOTAL CARBON DIOXIDE 25.9 MMOL/L (24-32); eGFR 51 ML/MIN
[2022-10-17] MEDS: heparin, porcine 5000 units/ml vial SQ SCH (07:46)
[2022-10-17] MEDS: K and/or MAG REPLACEMENT MC SCH (08:00)
[2022-10-17] MEDS: normal saline 1000ml 1,000 ML IV SCH (08:16)
[2022-10-17 08:21] LABS: ANION GAP 6 (8-16); CHLORIDE 105 MMOL/L (99-107); POTASSIUM 3.9 MMOL/L (3.5-5.1); SODIUM 137 MMOL/L (135-145)
--- NOTE | 2022-10-17 14:28 | NUR ---
Student documentation: I have reviewed and agree with all interventions, assessments performed and documented by Rosmery BOSTON Student .
== END 2022-10-17 14:49 | DRG 919 ==
LOC: ER 21:30 → ED HOLD 10-15 01:22 → OBSVTOIN 10-15 01:22 → SUR 3N 10-15 07:00
PROVIDERS: ADMIT Internal Medicine; ATTEND Family Medicine
PROC: BW211ZZ Computerized Tomography (CT Scan) of Abdomen and Pelvis using Low Osmolar Contrast (ICD-10-PCS; principal; 2022-10-15)
PROC: BW211ZZ Computerized Tomography (CT Scan) of Abdomen and Pelvis using Low Osmolar Contrast (ICD-10-PCS; 2022-10-16)
DX: T81.89XA Other complications of procedures, not elsewhere classified, initial encounter (principal); K65.1 Peritoneal abscess; Z60.2 Problems related to living alone; Z66 Do not resuscitate; Z20.822 Contact with and (suspected) exposure to COVID-19; R41.89 Other symptoms and signs involving cognitive functions and awareness; F10.10 Alcohol abuse, uncomplicated; I48.0 Paroxysmal atrial fibrillation; Y83.8 Other surgical procedures as the cause of abnormal reaction of the patient, or of later complication, without mention of misadventure at the time of the procedure; F41.9 Anxiety disorder, unspecified; D63.8 Anemia in other chronic diseases classified elsewhere; G89.29 Other chronic pain; F09 Unspecified mental disorder due to known physiological condition; N18.30 Chronic kidney disease, stage 3 unspecified; Z87.442 Personal history of urinary calculi; Z98.84 Bariatric surgery status; Z88.8 Allergy status to other drugs, medicaments and biological substances; Y92.89 Other specified places as the place of occurrence of the external cause
CPT/HCPCS: 36415; 74176; 74177; 80053; 80320; 81003; 82140; 83605; 83690; 85025; 87040; 87081; 87811; 96360; 97116; 97161; 99285; G0378; J1200; J1630; J1644; J2060; J2543; J3490; J7030; Q9963; Q9967